=== PATIENT | female | born 1980 | race Two or more races ===

== ENCOUNTER 2018-08-28 13:19 | Outpatient (CLI) | payer OTHER | END 2018-08-28 23:59 | disposition home or self-care (01) | LOC: RAD 13:19 | DX: Z11.1 Encounter for screening for respiratory tuberculosis (principal) | CPT/HCPCS: 71046 ==

== ENCOUNTER 2018-09-16 15:43 | Emergency (ER) | payer OTHER ==
[~2018-09-16] VITALS: Ht 157.5 cm; Wt 57.0 kg
[2018-09-16 15:45] VITALS: BP 117/68
== END 2018-09-16 16:41 | disposition home or self-care (01) ==
LOC: ER 15:44
DX: S61.032A Puncture wound without foreign body of left thumb without damage to nail, initial encounter (principal); Z77.21 Contact with and (suspected) exposure to potentially hazardous body fluids; W26.8XXA Contact with other sharp object(s), not elsewhere classified, initial encounter; Y93.89 Activity, other specified; Y92.89 Other specified places as the place of occurrence of the external cause; Y99.8 Other external cause status
CPT/HCPCS: 99281

== ENCOUNTER 2018-11-18 07:35 | Emergency (ER) | payer OTHER ==
[~2018-11-18] VITALS: Ht 157.5 cm; Wt 59.1 kg
[2018-11-18 07:36] VITALS: BP 118/75
[2018-11-18] MEDS ORDERED: ondansetron 4mg rapidly disintigrating tab PO ONE (08:45)
[2018-11-18] MEDS ORDERED: CefTRIAXone 250MG IM Kit w/LIDOcaine IM ONE (08:45)
== END 2018-11-18 09:11 | disposition home or self-care (01) ==
LOC: ER 07:36
DX: Z77.21 Contact with and (suspected) exposure to potentially hazardous body fluids (principal); H57.89 Other specified disorders of eye and adnexa
CPT/HCPCS: 96372; 99283; J0696

== ENCOUNTER 2019-04-06 10:40 | Emergency (ER) | payer OTHER ==
[~2019-04-06] VITALS: Ht 154.9 cm; Wt 62.9 kg
[2019-04-06 11:59] LABS: CLARITY,URINE CLEAR (Clear); COLOR,URINE YELLOW (Yellow); GLUCOSE, URINE NEGATIVE (Neg); KETONES,URINE NEGATIVE (Neg); LEUKOCYTE ESTERASE ,URINE NEGATIVE (Neg); NITRITES, URINE NEGATIVE (Neg); OCCULT BLOOD,URINE TRACE-LYSED (Neg); PH,URINE 5.5 (4.8-8.0); PROTEIN,URINE NEGATIVE (Neg); URINE HCG NEGATIVE (NEG); UROBILINOGEN,URINE 0.2 E.U/dL (0.2-1.0)
[2019-04-06 12:02] LABS: UA COLLECTION TYPE CLN CATCH MIDSTREAM
[2019-04-06 12:03] LABS: BACTERIA,URINE FEW /HPF (Neg); MUCUS STRANDS NONE SEEN /LPF (Neg); RBC,URINE 0-2 /HPF (0-2); SQUAMOUS EPITHELIAL CELL,UR MANY /LPF (FEW); WBC,URINE NONE SEEN /HPF (0-4)
[2019-04-06 12:11] LABS: BASOPHILS % (AUTO) 0.5 % (0-1); EOSINOPHILS # (AUTO) 0.1 X10'3 (0-0.9); EOSINOPHILS % (AUTO) 1.1 % (0-6); HEMATOCRIT 36.9 % (35.0-45.0); HEMOGLOBIN 12.2 g/dl (12.0-16.0); LYMPHOCYTES # (AUTO) 1.5 X10'3 (1.1-4.8); LYMPHOCYTES % (AUTO) 19.5 % (21-51); MEAN CORPUSCULAR HEMOGLOBIN 27.4 PG (27.0-31.0); MEAN CORPUSCULAR HGB CONC 33.1 g/dL (33.0-36.5); MEAN CORPUSCULAR VOLUME 82.9 FL (78-98); MEAN PLATELET VOLUME 9.4 FL (7.4-10.4); MONOCYTES # (AUTO) 0.5 X10'3 (0-0.9); MONOCYTES % (AUTO) 6.6 % (2-12); NEUTROPHILS # (AUTO) 5.7 X10'3 (1.8-7.7); NEUTROPHILS % (AUTO) 72.3 % (42-75); PLATELET COUNT 292 X10'3 (140-440); RED BLOOD COUNT 4.45 X10'6 (4.20-5.60); RED CELL DISTRIBUTION WIDTH 14.4 % (11.5-14.5); WHITE BLOOD COUNT 7.9 X10'3 (4.5-11.0)
[2019-04-06 12:27] LABS: ALANINE AMINOTRANSFERASE 19 U/L (12-78); ALBUMIN 3.7 G/DL (3.4-5.0); ALBUMIN/GLOBULIN RATIO 1.1 (1.1-1.5); ALKALINE PHOSPHATASE 76 IU/L (46-116); ANION GAP 7 (8-16); ASPARTATE AMINO TRANSFERASE 18 U/L (10-37); BLOOD UREA NITROGEN 11 MG/DL (7-18); BUN/CREATININE RATIO 14.1 (6.6-38.0); CALCIUM 8.9 MG/DL (8.5-10.1); CHLORIDE 106 MMOL/L (99-107); CREATININE 0.78 MG/DL (0.40-0.90); GLUCOSE 83 MG/DL (70-104); LIPASE 139 U/L (73-393); POTASSIUM 3.5 MMOL/L (3.5-5.1); SODIUM 139 MMOL/L (135-145); TOTAL CARBON DIOXIDE 26.3 MMOL/L (24-32); TOTAL PROTEIN 7.2 G/DL (6.4-8.2); eGFR 83 ML/MIN
[2019-04-06] MEDS ORDERED: morphine 2 MG/ML inj. syringe IV ONE (13:15)
[2019-04-06 13:49] VITALS: BP 117/63
== END 2019-04-06 13:51 | disposition home or self-care (01) ==
LOC: ER 10:41
DX: K80.20 Calculus of gallbladder without cholecystitis without obstruction (principal); F41.9 Anxiety disorder, unspecified
CPT/HCPCS: 36415; 76700; 80053; 81001; 81025; 83690; 85025; 93005; 96374; 99285; J2270

== ENCOUNTER 2019-09-07 13:23 | Emergency (ER) | payer BC, OTHER ==
[~2019-09-07] VITALS: Ht 154.9 cm; Wt 63.6 kg
[2019-09-07 14:05] LABS: BASOPHILS # (AUTO) 0.1 X10'3 (0-0.2); EOSINOPHILS # (AUTO) 0.2 X10'3 (0-0.9); EOSINOPHILS % (AUTO) 2.1 % (0-6); HEMATOCRIT 39.5 % (35.0-45.0); HEMOGLOBIN 12.9 g/dl (12.0-16.0); LYMPHOCYTES % (AUTO) 22.3 % (21-51); MEAN CORPUSCULAR HEMOGLOBIN 27.7 PG (27.0-31.0); MEAN CORPUSCULAR HGB CONC 32.7 g/dL (33.0-36.5); MEAN CORPUSCULAR VOLUME 84.7 FL (78-98); MEAN PLATELET VOLUME 8.9 FL (7.4-10.4); MONOCYTES # (AUTO) 0.6 X10'3 (0-0.9); MONOCYTES % (AUTO) 6.1 % (2-12); NEUTROPHILS # (AUTO) 6.2 X10'3 (1.8-7.7); NEUTROPHILS % (AUTO) 68.5 % (42-75); PLATELET COUNT 319 X10'3 (140-440); RED BLOOD COUNT 4.67 X10'6 (4.20-5.60); RED CELL DISTRIBUTION WIDTH 13.7 % (11.5-14.5)
[2019-09-07] MEDS ORDERED: ketorolac tromethamine 15mg/ml inj. IV ONE (14:05)
[2019-09-07 14:08] LABS: CLARITY,URINE SLIGHTLY CLOUDY (Clear); COLOR,URINE YELLOW (Yellow); GLUCOSE, URINE NEGATIVE (Neg); KETONES,URINE NEGATIVE (Neg); LEUKOCYTE ESTERASE ,URINE SMALL (Neg); NITRITES, URINE NEGATIVE (Neg); OCCULT BLOOD,URINE TRACE-INTACT (Neg); PROTEIN,URINE NEGATIVE (Neg); UROBILINOGEN,URINE 0.2 E.U/dL (0.2-1.0)
[2019-09-07 14:12] LABS: UA COLLECTION TYPE CLN CATCH MIDSTREAM
[2019-09-07 14:13] LABS: URINE HCG NEGATIVE (NEG)
[2019-09-07 14:14] LABS: BACTERIA,URINE 1+ /HPF (Neg); MUCUS STRANDS NONE SEEN /LPF (Neg); RBC,URINE 0-2 /HPF (0-2); SQUAMOUS EPITHELIAL CELL,UR MODERATE /LPF (FEW)
[2019-09-07 14:24] LABS: ALANINE AMINOTRANSFERASE 23 U/L (12-78); ALBUMIN 3.9 G/DL (3.4-5.0); ALKALINE PHOSPHATASE 77 IU/L (46-116); ANION GAP 6 (8-16); ASPARTATE AMINO TRANSFERASE 20 U/L (10-37); BILIRUBIN,TOTAL 0.7 MG/DL (0.1-1.0); BLOOD UREA NITROGEN 13 MG/DL (7-18); BUN/CREATININE RATIO 16.9 (6.6-38.0); CHLORIDE 105 MMOL/L (99-107); CREATININE 0.77 MG/DL (0.40-0.90); GLUCOSE 84 MG/DL (70-104); LIPASE 188 U/L (73-393); POTASSIUM 3.6 MMOL/L (3.5-5.1); SODIUM 137 MMOL/L (135-145); TOTAL CARBON DIOXIDE 25.9 MMOL/L (24-32); TOTAL PROTEIN 7.9 G/DL (6.4-8.2); eGFR 84 ML/MIN
--- NOTE | 2019-09-07 14:32 | NUR ---
pt is resting quietly on [place], waiting for chemistry laboratory technician, medicated per md order
--- NOTE | 2019-09-07 15:46 | NUR ---
pt resting quietly on gurney
[2019-09-07 17:05] VITALS: BP 112/68
--- NOTE | 2019-09-10 09:44 | NUR ---
ATTEMPTED TO CALL PT REGARDING VISIT ON 09/05, NO ANSWER, MESSAGE LEFT
--- NOTE | 2019-09-10 11:26 | NUR ---
PT RETURNED CALL, INFORMED HER THAT SHE HAS A UTI AND THAT ABX NEED TO BE CALLED IN. PT REQUEST THAT RX BE CALLED TO [facility] [place]. MACROBID [id number], 1 PO BID x5 DAYS CALLED TO [place] [facility] REQUESTED. PT ADVISED TO TAKE MEDICATION PERSCRIBED UNTIL GONE, F/U WITH PMD NEEDED AND TO RETURN TO THE ER FOR ANY RELATED ISSUES. PT QUESTIONS ANSWERED AND STATED UNDERSTANDING.
== END 2019-09-07 17:06 | disposition home or self-care (01) ==
LOC: EEVIPCON 13:24 → ER 13:24
DX: K80.20 Calculus of gallbladder without cholecystitis without obstruction (principal)
CPT/HCPCS: 36415; 76700; 80053; 81001; 81025; 83690; 85025; 87088; 96374; 99285; J1885

== ENCOUNTER → 2019-12-29 | Emergency (ER) | payer BC ==
[~2019-12-29] VITALS: Ht 157.5 cm; Wt 60.0 kg
[2019-12-29 13:56] VITALS: BP 117/62
== END | disposition home or self-care (01) ==
LOC: ER 13:38
DX: J02.9 Acute pharyngitis, unspecified (principal); R05 Cough; R51.9 Headache, unspecified; R53.83 Other fatigue; Z20.828 Contact with and (suspected) exposure to other viral communicable diseases
CPT/HCPCS: 87635; 99283; C9803

== ENCOUNTER 2020-04-29 12:53 | Emergency (ER) | payer BC, OTHER ==
[~2020-04-29] VITALS: Ht 154.9 cm; Wt 63.2 kg
[2020-04-29 12:57] VITALS: BP 111/43
[2020-04-29] MEDS ORDERED: CYCL-1 PO (13:39)
== END 2020-04-29 13:56 | disposition home or self-care (01) ==
LOC: ER 12:53 → EEVIPCON 12:53 → ER 13:56
DX: S16.1XXA Strain of muscle, fascia and tendon at neck level, initial encounter (principal); M25.511 Pain in right shoulder; Z79.899 Other long term (current) drug therapy; X58.XXXA Exposure to other specified factors, initial encounter; Y93.89 Activity, other specified; Y92.89 Other specified places as the place of occurrence of the external cause; Y99.8 Other external cause status
CPT/HCPCS: 99283

== ENCOUNTER 2020-07-28 19:03 | Emergency (ER) | payer BC, OTHER ==
[~2020-07-28] VITALS: Ht 154.9 cm; Wt 62.7 kg
[~2020-07-28 19:03] MED LIST: CYCL-1 PO
[2020-07-28 19:44] VITALS: BP 118/73
[2020-07-28] MEDS ORDERED: ALBU6.7H9 INH (21:22)
[2020-07-28] MEDS ORDERED: AZIT250T PO (21:22)
== END 2020-07-28 21:50 | disposition home or self-care (01) ==
LOC: ER 19:04
DX: J06.9 Acute upper respiratory infection, unspecified (principal); Z20.822 Contact with and (suspected) exposure to COVID-19; Z79.2 Long term (current) use of antibiotics; Z79.899 Other long term (current) drug therapy; Z86.16 Personal history of COVID-19
CPT/HCPCS: 87635; 99283; C9803